=== PATIENT | female | born 1950 | race Caucasian/White ===

== ENCOUNTER 2024-03-15 19:50 | Emergency (ER) | payer MEDICARE, MEDICAID, SELFPAY ==
[2024-03-15] VITALS (10 sets, daily range): BP systolic 91–133; BP diastolic 49–95; BMI 28.0
[2024-03-15 20:14] LABS: Hematocrit 41.8 % (37.0-47.0); Hemoglobin 14.1 g/dL (12.0-16.0); Mean Corp Hgb Conc. 33.7 g/dL (33.0-37.0); Mean Corpuscular Hgb 29.4 pg (27.0-31.0); Mean Corpuscular Volume 87.1 fL (81.0-99.0); Mean Platelet Volume 9.8 fL (7.4-10.4); Platelet Count 328 10^3/uL (130-400); Red Cell Dist. Width 13.9 % (11.5-14.5); White Blood Cell Count 10.6 10^3/uL (4.8-10.8)
[2024-03-15 20:35] LABS: Absolute Neutrophils -Man Diff 3.9 10^3/uL (1.4-6.5); Atypical Lymphocytes 5 %; Band Neutrophils 2 % (0-3); Eosinophils 1 % (0-6); Lymphocytes 48 % (20-51); Metamyelocytes 2 % (-); Monocytes 7 % (2-9); Normal RBC Morphology Yes; Platelets Checked Yes; Segmented Neutrophils 35 % (42-75); Total Cells Counted 100
[2024-03-15 20:39] LABS: ALT (SGPT) 23 U/L (0-35); AST (SGOT) 31 U/L (14-36); Albumin 4.3 g/dl (3.5-5.0); Alkaline Phosphatase 144 U/L (38-126); Blood Urea Nitrogen 21 mg/dl (7-17); Calcium 9.7 mg/dl (8.4-10.2); Carbon Dioxide 21 mmol/L (22-30); Chloride 107 mmol/L (98-107); Estimated Creatinine Clearance 59 ml/min; Glucose 195 mg/dl (70-99); Potassium 3.3 mmol/L (3.5-5.1); Sodium 140 mmol/L (135-145); Total Bilirubin 0.6 mg/dl (0.2-1.3); Total Protein 7.1 g/dl (6.3-8.2); eGFR > 60.00
[2024-03-15] MEDS: TORADOL 30 MG IV (21:21)
[2024-03-15] MEDS: DECADRON 10 MG IV (21:21)
[2024-03-15] MEDS: NSS 1000 IV (21:32)
[2024-03-15] MEDS: BENADRYL 25 MG PO (22:47)
--- NOTE | 2024-03-15 23:46 | ED.GENMED ---
History of Present Illness
General
Chief Complaint: Allergic Reaction
Source: patient and family
Exam Limitations: none
Time Seen by Provider: 03/15/24 20:24
Nursing documentation reviewed up to this point in time: agreed with
History of Present Illness
History of Present Illness:
74-year-old female without significant past medical history presenting to the emergency department after being stung by multiple bees just prior to arrival. She claims that she felt very itchy and then passed out at her home she was passed out for
a few minutes when EMS arrived gave her Benadryl and epinephrine. She felt better after this but still was having some ongoing itchiness and symptoms. Denies any known allergic history. Has any chest pain shortness of breath. Has been able to
swallow. Denies any ongoing abdominal pain did have some nausea
Past History
Past History
ED Past Medical History: Other (Rheumatoid arthritis)
Social History
Tobacco: Non-smoker
Living: with family
Review of Systems
Review of Systems
Allergies reviewed?: Yes
All Other Systems: ROS reviewed and negative except as documented in HPI and ROS
Phy Exam
Physical Exam
Physical Exam:
GENERAL: Alert , in no apparent distress
EYE: pupils equal and reactive
NECK: Supple, no significant adenopathy.
ENT: o/p clr, mmm.
CARDIAC: Regular rate and rhythm .
LUNGS: Clear breath sounds bilaterally, no acute respiratory distress, no wheezes/rales/rhonchi
ABDOMEN: Soft, without focal tenderness, no r/g, no cvat
NEUROLOGICAL: Alert and oriented, no focal neuro deficits
SKIN: Patchy raised wheals throughout the upper chest and lower extremities bilaterally. Warm and dry, skin intact.
MUSCULOSKELETAL: No edema, well perfused.
PSYCH: Normal and appropriate interaction.
Course
Orders/Labs/Results
Orders:
Orders
03/15/24 20:01
Electrocardiogram (*1) Urgent
Reason for Study: Syncope
EKG- Treatment ONCE
03/15/24 20:08
Complete Blood Count/With Diff Urgent
Comprehensive Metabolic Panel Urgent
Manual Differential Urgent
03/15/24 21:04
Dexamethasone Sod Phosphate [Decadron] 10 mg IV NOW STA
Ketorolac [Toradol] 30 mg IV NOW STA
03/15/24 21:32
0.9% Sodium Chloride 1000 ml [Nss] 1,000 ml IV BOLUS
03/15/24 22:46
Diphenhydramine [Benadryl] 25 mg .ROUTE .STK-MED ONE
03/15/24 22:47
Diphenhydramine [Benadryl] 25 mg PO NOW STA
Abnormal Lab Results
03/15/24
20:08
Segmented Neutrophils 35 L %
(42-75)
Potassium 3.3 L mmol/L
(3.5-5.1)
Carbon Dioxide 21 L mmol/L
(22-30)
BUN 21 H mg/dl
(7-17)
Glucose 195 H mg/dl
(70-99)
Alkaline Phosphatase 144 H U/L
(38-126)
03/15/24 20:08
03/15/24 20:08
Vital Signs
Initial and Last Documented VS:
Initial Vital Signs
Temp Pulse Resp BP Pulse Ox
97.5 F 85 24 124/53 98
03/15/24 19:52 03/15/24 19:52 03/15/24 19:52 03/15/24 19:52 03/15/24 19:52
Last Documented Vital Signs
Temp Pulse Resp BP Pulse Ox
97.5 F 91 19 122/95 93
03/15/24 19:52 03/15/24 23:30 03/15/24 23:30 03/15/24 23:10 03/15/24 23:00
MDM/Problems Addressed
MDM/Problems Addressed:
74-year-old female presenting to the emergency department today after multiple bee stings. Apparently passed out at home but symptoms seem to improve after receiving epinephrine and Benadryl from EMS here vital signs are normal labs obtained
without emergent findings patient did have scattered hives consistent with allergic reaction. She has no additional medical history. Was given a dose of steroid here as well as additional antihistamine.
ED Attending Note
-
Portions of this chart may have been created with voice recognition software.� Occasional wrong word or��sound alike� substitutions may have occurred due to the inherent limitations of voice recognition software.
Discharge Plan
Departure
Patient Disposition: Home (Routine Discharge)
Date of Disposition: 03/15/24
Time of Disposition: 23:51
Patient with high blood pressure during this ER visit?: No
Condition: Good
Covid-19: Not Applicable
Discharge Problem:
Allergic reaction
Instructions: Hives (DC)
Prescriptions:
New
cetirizine [Zyrtec] 10 mg tablet
10 mg PO BID 4 Days Qty: 8 0RF
famotidine 20 mg tablet
20 mg PO BID 4 Days Qty: 8 0RF
prednisone 20 mg tablet
40 mg PO DAILY 4 Days Qty: 8 0RF
epinephrine [EpiPen 2-Anshu] 0.3 mg/0.3 mL auto-injector
0.3 mg IM Q5-15M PRN (Reason: hypersensitivity reaction) Qty: 2 0RF
No Action
prednisolone 5 MG tablet
5 mg PO DAILY
doxycycline hyclate 100 MG tablet
100 mg PO BID Qty: 14 0RF
albuterol sulfate [ProAir HFA] 8.5 GM HFA aerosol inhaler
8.5 gm IH Q4 Qty: 1 0RF
methylprednisolone [Medrol (Anshu)] 4 MG tablets,dose pack
4 tab PO . DIRECT Qty: 1 0RF
Referrals:
Shelby Wilkerson MD [Consulting Staff] - Follow up in 10 days
Jack Mathew MD [Family Provider] -
Activity Restrictions/Additional Instructions:
You came to the emergency department today after an allergic reaction. Here you were observed for multiple hours with improvement. Please take the prescribed medications over the next 4 days and follow-up closely as an outpatient. Return
immediately for any worsening, new or concerning symptoms.
Interventions
Interventions:
*Risk Screen - Suicide Last Done: 03/15/24 19:52
*General Assessment Last Done: 03/15/24 19:52
*Neglect/Abuse Screening Last Done: 03/15/24 19:52
ED- Cardiac Assessment Last Done: 03/15/24 20:02
ED- Pulmonary Assessment Last Done: 03/15/24 20:02
ED-Skin Assessment Last Done: 03/15/24 22:47
Discharge Date and Time
Print Language: SLOVAK
== END 2024-03-16 00:07 | disposition home or self-care (01) ==
LOC: EMR 19:50
PROVIDERS: EMERGENCY PHYSICIAN Emergency Medicine; FAMILY PHYSICIAN Internal Medicine
DX: T63.441A Toxic effect of venom of bees, accidental (unintentional), initial encounter (principal); Y92.9 Unspecified place or not applicable
CPT/HCPCS: 99283; 96374; 96375; 96361; 80053; 85025; 93005

== ENCOUNTER 2025-04-19 14:19 | Emergency (ER) | payer MEDICARE, OTHER, SELFPAY ==
[2025-04-19 14:20] VITALS: BP 127/73
--- NOTE | 2025-04-19 17:17 | ED.GENMED ---
History of Present Illness
<MANUELA Phillips Last Filed: 04/20/25 11:56>
General
Chief Complaint: Musculo-Skeletal Complaint
Source: patient
Exam Limitations: none
Time Seen by Provider: 04/19/25 16:02
Nursing documentation reviewed up to this point in time: agreed with
History of Present Illness
History of Present Illness:
see MDM
Past History
<MANUELA Phillips Last Filed: 04/20/25 11:56>
Past History
ED Past Medical History: Other (Rheumatoid arthritis)
Social History
Tobacco: Non-smoker
Living: with family
Review of Systems
<MANUELA Phillips Last Filed: 04/20/25 11:56>
Review of Systems
Allergies reviewed?: Yes
All Other Systems: Not applicable
Phy Exam
<MANUELA Phillips Last Filed: 04/20/25 11:56>
Physical Exam
Physical Exam:
GENERAL: Alert , in no apparent distress
EYE: pupils equal and reactive
NECK: Supple
ENT: o/p clr, mmm.
CARDIAC: Regular rate and rhythm .
LUNGS: Clear breath sounds bilaterally, no acute respiratory distress, no wheezes/rales/rhonchi
ABDOMEN: Soft, without focal tenderness, no r/g, no cvat, normal bowel sounds
NEUROLOGICAL: Alert and oriented, no focal neuro deficits
SKIN: Warm and dry, skin intact.
MUSCULOSKELETAL: normal inspection to B/L LE;
tenderness/hyperacusis everywhere on the legs; painful limited ROM/flexion of hips and knees; no redness/warmth; normal pusels
senstaion itnact
PSYCH: Normal and appropriate interaction.
Course
<Paola Calvillo PA-C - Last Filed: 04/20/25 11:56>
Orders/Labs/Results
Orders:
Orders
04/19/25 16:42
Ketorolac [Toradol] 15 mg IV NOW STA
04/19/25 17:36
Basic Metabolic Panel Urgent
Comment: BMP NO K
CPK [Creatine Phosphokinase] Urgent
CRP [C-Reactive Protein] Urgent
Complete Blood Count/With Diff Urgent
ESR [Erythrocyte Sed Rate] Urgent
04/19/25 19:57
Dexamethasone Sod Phosphate [Decadron] 10 mg IV NOW STA
HYDROmorphone [Dilaudid] 0.5 mg IV NOW STA
04/19/25 20:45
Ondansetron Injectable [Zofran] 4 mg IV NOW STA
Abnormal Lab Results
04/19/25
17:36
Absolute Lymphs (auto) 0.9 L 10^3/uL
(1.2-3.4)
Neutrophils % 79.0 H %
(42.2-75.2)
Lymphocytes % 13.3 L %
(20.5-51.1)
Chloride 109 H mmol/L
(98-107)
BUN 20 H mg/dl
(7-17)
Creatinine 0.4 L mg/dL
(0.6-1.0)
Glucose 132 H mg/dl
(70-99)
04/19/25 17:36
04/19/25 17:36
Vital Signs
Initial and Last Documented VS:
Initial Vital Signs
Temp Pulse Resp BP Pulse Ox
37.2 C 84 18 127/73 99
04/19/25 14:20 04/19/25 14:20 04/19/25 14:20 04/19/25 14:20 04/19/25 14:20
Last Documented Vital Signs
Temp Pulse Resp BP Pulse Ox
36.6 C 71 20 146/73 97
04/19/25 19:42 04/19/25 21:26 04/19/25 21:26 04/19/25 21:26 04/19/25 21:26
<Santiago Mayorga PA-C - Last Filed: 04/19/25 21:01>
Orders/Labs/Results
Orders:
Orders
04/19/25 16:42
Ketorolac [Toradol] 15 mg IV NOW STA
04/19/25 17:36
Basic Metabolic Panel Urgent
Comment: BMP NO K
CPK [Creatine Phosphokinase] Urgent
CRP [C-Reactive Protein] Urgent
Complete Blood Count/With Diff Urgent
ESR [Erythrocyte Sed Rate] Urgent
04/19/25 19:57
Dexamethasone Sod Phosphate [Decadron] 10 mg IV NOW STA
HYDROmorphone [Dilaudid] 0.5 mg IV NOW STA
04/19/25 20:45
Ondansetron Injectable [Zofran] 4 mg IV NOW STA
Abnormal Lab Results
04/19/25
17:36
Absolute Lymphs (auto) 0.9 L 10^3/uL
(1.2-3.4)
Neutrophils % 79.0 H %
(42.2-75.2)
Lymphocytes % 13.3 L %
(20.5-51.1)
Chloride 109 H mmol/L
(98-107)
BUN 20 H mg/dl
(7-17)
Creatinine 0.4 L mg/dL
(0.6-1.0)
Glucose 132 H mg/dl
(70-99)
04/19/25 17:36
04/19/25 17:36
Vital Signs
Initial and Last Documented VS:
Initial Vital Signs
Temp Pulse Resp BP Pulse Ox
37.2 C 84 18 127/73 99
04/19/25 14:20 04/19/25 14:20 04/19/25 14:20 04/19/25 14:20 04/19/25 14:20
Last Documented Vital Signs
Temp Pulse Resp BP Pulse Ox
36.6 C 71 20 146/73 97
04/19/25 19:42 04/19/25 21:26 04/19/25 21:26 04/19/25 21:26 04/19/25 21:26
<Paola Calvillo PA-C - Last Filed: 04/20/25 11:56>
MDM/Problems Addressed
Differential Diagnosis Includes:
see MDM
MDM/Problems Addressed:
Note:
CHIEF COMPLAINT(S)
Increased pain and decreased mobility, especially in the lower extremities, suspected to be related to a rheumatoid flare.
HISTORY OF PRESENT ILLNESS
The patient is a female with a known history of rheumatoid arthritis, presenting with significant worsening of pain and immobility in both legs, predominantly affecting the left leg. Her baseline condition involves some degree of mobility issues,
but this current episode 'is by far more' than her normal state. According to her family member, the worsening began progressively over the last couple of days, with the patient experiencing significantly increased pain and decreased ability to walk
today, even with a walker. She describes the pain starting around the lower back and radiating to her legs, accompanied by usual numbness but no new numbness. She denies fever, chills, recent injuries, or symptoms of incontinence, and has been able
to use the bathroom with a walker. She attempted self-management with increased prednisone and ibuprofen but with inadequate relief. Her last dose of 600 mg of ibuprofen was taken this morning around 6 a.m. She had a recent change in rheumatology
care and has an upcoming appointment for joint injections. Her symptoms do not include chest pain or neurological weakness; rather, she describes them as pain-relating.
she has never had to be admitted for chornic pain before
no recent new meds
no antihyperlipidemics
PAST MEDICAL AND SURIGICAL HISTORY
The patient is known to have rheumatoid arthritis and has had previous episodes where she required pain management with medications like Toradol.
MEDICATIONS
- Prednisone, typically 5 mg per day, recently increased due to worsening symptoms.
- Ibuprofen, last taken 600 mg at 6:00 AM today.
- Additional unspecified [id number] pain management (Tylenol).
- Occasionally uses Gabapentin if her condition necessitates.
REVIEW OF SYSTEMS
- Musculoskeletal: Bilateral leg pain, worse on the left, increased immobility.
- Neurological:no weakness, nor numbness no new neurological weakness.
- Genitourinary: Able to void independently with assistance from a walker.
- General: No fever or chills reported.
PHYSICAL EXAM
- Nursing notes reviewed and vital signs reviewed.
PLAN
The plan includes administering IV pain medication to control her pain, checking some blood work to evaluate her condition further, and assessing her response to treatments. Considering prescribed medications and history, Toradol was discussed as a
potential option given its previous use and tolerance by the patient.
DIFFERENTIAL DIAGNOSIS
The Differential Diagnosis includes, in no particular order and is not limited to:
1. Rheumatoid arthritis flare
2. Sciatica
3. Lumbar radiculopathy
4. Vertebral compression fracture
5. Peripheral neuropathy
6. Osteoarthritis
7. Spinal stenosis
8. Connective tissue disorder
9. Fibromyalgia
10. Polymyalgia rheumatica
75 y/o F
chronic pain from RA
on immunosuppressants, steroids
here with severe pain both legs, no weakness, no numbness x 3 days
worse than usual pain
inability to get around
upped her prednisone without relief
no skin changes, swelling, color changes, numbness, weakness, incotnience
doesn't usually need opiates for pain
exam hyperacusis, normal inspection, normal neuro no red flag symptoms, pulses
no back complaints
no perineal anestehsia
will check labs, inflammatory markers, give pain meds, daughter wants to start with toradol
signed out to [facility] pending reassessment
<Paola Calvillo PA-C - Last Filed: 04/20/25 11:56>
*Pulse Oximetry
SaO2: 99
Oxygen Mode of Delivery: Room air
<Santiago Mayorga PA-C - Last Filed: 04/19/25 21:01>
*Pulse Oximetry
Patient hypoxic: no
*Critical Care Note
Total Time (30-74mins, 75-104mins- exclusive of procedures): Not Applicable
<Santiago Mayorga PA-C - Last Filed: 04/19/25 21:01>
Update Note
Update Note:
Received care for patient upon signout. Patient with RA flare with bilateral leg pain having difficulty ambulating. Toradol was given earlier without significant relief I tried Decadron and Dilaudid and patient still in pain with weightbearing.
We provided a walker. I recommended admission secondary to her difficulty ambulating however she does not want to stay in the hospital. I might concern for her safety and others around her if she falls. She understood this. She has an
appointment with a application security consultant in 3 days. I did prescribe a pain medicine for her to take if needed. She will continue to take increased dose of prednisone she has been on. Inflammatory markers were negative. Again patient was recommended and
offered admission however she declined
ED Attending Note
<Paola Calvillo PA-C - Last Filed: 04/20/25 11:56>
-
Portions of this chart may have been created with voice recognition software.� Occasional wrong word or��sound alike� substitutions may have occurred due to the inherent limitations of voice recognition software.
Discharge Plan
Departure
Patient Disposition: Home (Routine Discharge)
Date of Disposition: 04/19/25
Time of Disposition: 20:59
Patient with high blood pressure during this ER visit?: No
Discharge Problem:
Myalgia
Instructions: Muscle and Bone Pain (DC)
Prescriptions:
New
oxycodone-acetaminophen [Percocet] 5-325 mg tablet
1 tab PO Q6H PRN (Reason: Pain) Qty: 10 0RF
No Action
prednisolone 5 MG tablet
5 mg PO DAILY
doxycycline hyclate 100 MG tablet
100 mg PO BID Qty: 14 0RF
albuterol sulfate [ProAir HFA] 8.5 GM HFA aerosol inhaler
8.5 gm IH Q4 Qty: 1 0RF
methylprednisolone [Medrol (Anshu)] 4 MG tablets,dose pack
4 tab PO . DIRECT Qty: 1 0RF
cetirizine [Zyrtec] 10 mg tablet
10 mg PO BID 4 Days Qty: 8 0RF
famotidine 20 mg tablet
20 mg PO BID 4 Days Qty: 8 0RF
prednisone 20 mg tablet
40 mg PO DAILY 4 Days Qty: 8 0RF
epinephrine [EpiPen 2-Anshu] 0.3 mg/0.3 mL auto-injector
0.3 mg IM Q5-15M PRN (Reason: hypersensitivity reaction) Qty: 2 0RF
Referrals:
Jack Mathew MD [Family Provider, Internal Medicine]
Activity Restrictions/Additional Instructions:
Use walker for support and ambulating. Take pain medicine as needed for severe pain. Follow-up with your application security consultant as planned. Return here if worse otherwise
Interventions
Interventions:
*Risk Screen - Suicide Last Done: 04/19/25 14:23
*General Assessment Last Done: 04/19/25 14:23
*Neglect/Abuse Screening Last Done: 04/19/25 14:23
*ED- Fall Risk Assessment Last Done: 04/19/25 21:30
*ED COVID-19 Vaccine History Last Done: 04/19/25 14:23
*Nursing Disposition Last Done: 04/19/25 21:30
ED-Musculoskeletal Assessment Last Done: 04/19/25 21:28
Discharge Date and Time
Discharge Date/Time: 04/19/25 21:32
Print Language: BARBADIAN
[2025-04-19] MEDS: TORADOL 15 MG IV (17:48)
[2025-04-19 18:04] LABS: Hematocrit 40.6 % (37.0-47.0); Hemoglobin 13.6 g/dL (12.0-16.0); Mean Corp Hgb Conc. 33.5 g/dL (33.0-37.0); Mean Corpuscular Volume 88.6 fL (81.0-99.0); Nucleated Red Blood Cells % 0 %; Platelet Count 214 10^3/uL (130-400); Red Cell Dist. Width 13.2 % (11.5-14.5)
[2025-04-19 18:37] LABS: C-Reactive Protein < 5.00 mg/L (0.0-10.00)
[2025-04-19 18:38] LABS: Blood Urea Nitrogen 20 mg/dl (7-17); Calcium 9.4 mg/dl (8.4-10.2); Carbon Dioxide 24 mmol/L (22-30); Chloride 109 mmol/L (98-107); Glucose 132 mg/dl (70-99); Sodium 139 mmol/L (135-145); eGFR > 60.00
[2025-04-19 19:42] VITALS: BP 158/81
[2025-04-19] MEDS: DILAUDID 0.5 MG IV (20:29)
[2025-04-19] MEDS: DECADRON 10 MG IV (20:29)
[2025-04-19 21:26] VITALS: BP 146/73
== END 2025-04-19 21:32 | disposition home or self-care (01) ==
LOC: EMR 14:19
PROVIDERS: Physician Assistant; EMERGENCY PHYSICIAN Emergency Medicine; FAMILY PHYSICIAN Internal Medicine
DX: M79.18 Myalgia, other site (principal); M06.9 Rheumatoid arthritis, unspecified; Z79.60 Long term (current) use of unspecified immunomodulators and immunosuppressants; Z79.52 Long term (current) use of systemic steroids
CPT/HCPCS: 96374; 96375; 99284; 80048; 82550; 85025; 85652; 86140